=== PATIENT | male | born 1950 | race Two or more races ===

== ENCOUNTER 2016-07-11 19:21 | Emergency (ER) | payer MEDICARE, OTHER ==
[~2016-07-11] VITALS: Ht 172.7 cm; Wt 99.8 kg
[~2016-07-11 19:21] MED LIST: ACET-868 PO; AMLO10TA4 PO; ASPI-495 PO; ATOR40TA PO; CETI-102 PO; DOXY100C2 PO; FURO-145 PO; LOSA25TA13 PO; METF500T4 PO; METO25TA6 PO; NIAC500T8 PO; NPH,100V SQ; OMEP20TA68 PO; TERA5CAP4 PO
[2016-07-11 21:27] LABS: INR 1.16 (0.87-1.13); PROTHROMBIN TIME 12.2 SECS (9.5-12.7)
[2016-07-11 21:46] LABS: BASOPHILS # (AUTO) 0.1 /CMM (0.0-0.2); BASOPHILS % (AUTO) 0.7 % (0.0-2.0); EOSINOPHILS # (AUTO) 0.1 /CMM (0.0-0.7); EOSINOPHILS % (AUTO) 0.8 % (0.0-6.0); HEMATOCRIT 30 % (39-51); HEMOGLOBIN 10.1 g/dL (13.5-17.5); LYMPHOCYTES # (AUTO) 1.6 /CMM (0.8-4.8); LYMPHOCYTES % (AUTO) 16.6 % (20.0-44.0); MEAN CORPUSCULAR HEMOGLOBIN 29 PG (26.0-33.0); MEAN CORPUSCULAR HGB CONC 33 g/dl (31.0-36.0); MEAN CORPUSCULAR VOLUME 86 fL (80-96); MONOCYTES # (AUTO) 0.5 /CMM (0.1-1.30); MONOCYTES % (AUTO) 5.5 % (2.0-12.0); NEUTROPHILS # (AUTO) 7.6 /CMM (1.8-8.9); NEUTROPHILS % (AUTO) 76.4 % (43.0-81.0); PLATELET COUNT (AUTO) 373 /CMM (150-450); WHITE BLOOD COUNT (AUTO) 9.9 K/uL (4.3-11.0)
[2016-07-11 21:52] LABS: DIFF TOTAL % 100 %
[2016-07-11 22:28] LABS: CALCIUM, SERUM 9.3 mg/dL (8.5-10.1); CREATININE 1.7 mg/dL (0.6-1.3); POTASSIUM 5.2 mmol/L (3.5-5.1)
[2016-07-11 22:34] LABS: ALBUMIN 3.5 g/dL (3.4-5.0); BILIRUBIN,DIRECT 0.1 mg/dL (0.0-0.2); BILIRUBIN,TOTAL 0.3 mg/dL (0.2-1.0); INDIRECT BILIRUBIN 0.2 mg/dL (0.0-1.1); TOTAL PROTEIN, SERUM 8.2 g/dL (6.4-8.2)
[2016-07-11 22:51] VITALS: BP 154/72
== END 2016-07-11 23:11 | disposition home or self-care (01) ==
LOC: ER 19:22
DX: R31.0 Gross hematuria (principal); N28.9 Disorder of kidney and ureter, unspecified; E87.5 Hyperkalemia; I10 Essential (primary) hypertension; E11.9 Type 2 diabetes mellitus without complications; F17.200 Nicotine dependence, unspecified, uncomplicated; Z79.82 Long term (current) use of aspirin
CPT/HCPCS: 36415; 80048-TC; 80076-TC; 85025-TC; 85730-TC; A4606; Z7610

== ENCOUNTER 2016-07-17 22:47 | Emergency (ER) | payer MEDICARE, OTHER ==
[~2016-07-17] VITALS: Ht 172.7 cm; Wt 97.1 kg
[2016-07-18 00:03] LABS: KETONES,URINE NEGATIVE (NEGATIVE); LEUKOCYTE ESTERASE ,URINE 3+ (NEGATIVE); PH,URINE 6.5 (5.0-8.0)
[2016-07-18 00:08] LABS: ADD UA MICROSCOPIC YES
[2016-07-18 00:16] LABS: RBC,URINE TOO NUMEROUS TO COUN /HPF (0-2)
[2016-07-18 00:17] LABS: ADD URINE CULTURE YES; WBC,URINE TOO NUMEROUS TO COUN /HPF (0-3)
[2016-07-18 00:35] VITALS: BP 110/60
== END 2016-07-18 00:36 | disposition home or self-care (01) ==
LOC: ER 22:51
DX: N39.0 Urinary tract infection, site not specified (principal); R31.9 Hematuria, unspecified; R33.9 Retention of urine, unspecified; E11.9 Type 2 diabetes mellitus without complications; C61 Malignant neoplasm of prostate; F17.200 Nicotine dependence, unspecified, uncomplicated; Z98.890 Other specified postprocedural states; Z95.811 Presence of heart assist device; Z79.82 Long term (current) use of aspirin
CPT/HCPCS: 81001; 87077; 87086; 87186; 99284; A4606; 81000-TC; Z7610